=== PATIENT | male | born 1960 | race Caucasian/White ===

== ENCOUNTER 2018-08-05 11:20 | Emergency (ER) | payer OTHER, BC ==
[2018-08-05] MEDS ORDERED: Orphenadrine 100 MG Tab.ER PO ONE (12:10)
[2018-08-05] MEDS ORDERED: Ketorolac 30 MG/ML SDV IM ONE (12:10)
--- NOTE | 2018-08-05 12:16 | EDM.PDOC ---
ED HPI GENERAL MEDICAL PROBLEM - General Chief Complaint: Upper Extremity Injury/Pain Stated Complaint: RIGHT SHOULDER INJURY Time Seen by Provider: 08/05/18 11:29 Source of Information: Reports: Patient, RN Notes Reviewed History Limitations: Reports: No Limitations - History of Present Illness INITIAL COMMENTS - FREE TEXT/NARRATIVE: Patient is a 58 year old male who presents to the ED for the evaluation of right shoulder pain. 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 He notes the pain to be just below his right shoulder joint. He states that any movement of the shoulder aggravates this and it feels better just at rest or with no movement. He did not take anything for pain relief before coming to the ED. He would rate his pain at an 8-9/10 when it is present. He notes that he did have rotator cuff surgery to this shoulder around 15 years ago. He denies any numbness/tingling or weakness to his right arm. Right Shoulder Pain Score (Numeric/FACES): 3 - Related Data Allergies Allergy/AdvReac Type Severity Reaction Status Date / Time bee venom protein (honey bee) Allergy Cannot Verified 08/05/18 11:31 Remember Home Meds: Home Meds Carvedilol [Coreg] 3.125 mg PO BID 08/05/18 [History] Digoxin 125 mcg PO DAILY 08/05/18 [History] Furosemide [Lasix] 20 mg PO DAILY 08/05/18 [History] Orphenadrine [Norflex] 100 mg PO BID PRN #30 tab 08/05/18 [Rx] Ramipril 1.25 mg PO DAILY 08/05/18 [History] Past Medical History HEENT History: Reports: Impaired Vision Cardiovascular History: Reports: High Cholesterol, Hypertension Neurological History: Reports: Brain Injury - Past Surgical History Musculoskeletal Surgical History: Reports: Shoulder Surgery Social & Family History - Tobacco Use Smoking Status *Q: Former Smoker Used Tobacco, but Quit: Yes Month/Year Tobacco Last Used: 10 years - Caffeine Use Caffeine Use: Reports: Soda - Recreational Drug Use Recreational Drug Use: No Review of Systems - Review of Systems Review Of Systems: See Below Constitutional: Reports: No Symptoms Eyes: Reports: No Symptoms Ears: Reports: No Symptoms Nose: Reports: No Symptoms Mouth/Throat: Reports: No Symptoms Respiratory: Reports: No Symptoms Cardiovascular: Reports: No Symptoms GI/Abdominal: Reports: No Symptoms Genitourinary: Reports: No Symptoms Musculoskeletal: Reports: Shoulder Pain (right), Muscle Pain. Denies: Arm Pain , Joint Pain, Joint Swelling, Muscle Stiffness Skin: Reports: No Symptoms Neurological: Reports: Pre-Existing Deficit (rotator cuff surgery). Denies: Numbness, Tingling, Weakness Psychiatric: Reports: No Symptoms ED EXAM, GENERAL - Physical Exam Exam: See Below Free Text/Narrative:: exam limited to right upper extremity Exam Limited By: No Limitations General Appearance: Alert, WD/WN, No Apparent Distress Head: Atraumatic, Normocephalic Neck: Normal Inspection, Supple, Non-Tender, Full Range of Motion Respiratory/Chest: No Respiratory Distress, Lungs Clear, Normal Breath Sounds, No Accessory Muscle Use, Chest Non-Tender Cardiovascular: Normal Peripheral Pulses, Regular Rate, Rhythm, No Murmur Back Exam: Normal Inspection, Full Range of Motion Extremities: Normal Inspection, Non-Tender, Normal Capillary Refill, Limited Range of Motion (due to pain of right shoulder). No: Joint Swelling, Arm Pain, Increased Warmth, Redness Neurological: Alert, Oriented, Normal Cognition, Normal Reflexes, No Motor/ Sensory Deficits Psychiatric: Normal Affect, Normal Mood Skin Exam: Warm, Dry, Intact, Normal Color, No Rash Course - Vital Signs Last Recorded V/S: Last Vital Signs Temp 97.3 F 08/05/18 11:28 Pulse 106 H 08/05/18 11:28 Resp 18 08/05/18 11:28 BP 136/100 H 08/05/18 11:28 Pulse Ox 100 08/05/18 11:28 - Orders/Labs/Meds Meds: Medications Discontinued Medications Generic Name Dose Route Start Last Admin Trade Name Duyq PRN Reason Stop Dose Admin Ketorolac Tromethamine 30 mg 08/05/18 12:10 08/05/18 12:14 Toradol IM 08/05/18 12:11 30 mg ONETIME ONE Administration Orphenadrine Citrate 100 mg 08/05/18 12:10 08/05/18 12:14 Norflex PO 08/05/18 12:11 100 mg ONETIME ONE Administration - Radiology Interpretation Free Text/Narrative:: Previous right shoulder surgery, no additional abnormality is seen. Joints WNL. - Re-Assessments/Exams Free Text/Narrative Re-Assessment/Exam: 08/05/18 12:18 Pt presents to ED for right shoulder pain. Since this is a work injury, imaging will be done to r/o any fracture or establish a normal baseline for the injury. He will be given 30 mg IM toradol and 100 mg Norflex for pain relief. 08/05/18 12:51 Right shoulder x-ray does not appreciate any acute abnormality. This is likely due to muscle strain. Will provide script for norflex and recommend f/u with primary care provider. Departure - Departure Time of Disposition: 12:51 Disposition: Home, Self-Care 01 Condition: Fair Clinical Impression: Muscle strain of right shoulder Qualifiers: Encounter type: initial encounter Qualified Code(s): S46.911A - Strain of unspecified muscle, fascia and tendon at shoulder and upper arm level, right arm , initial encounter - Discharge Information *PRESCRIPTION DRUG MONITORING PROGRAM REVIEWED*: No *COPY OF PRESCRIPTION DRUG MONITORING REPORT IN PATIENT MIKAL: No Instructions: Muscle Strain, [id number] Referrals: Sharon Sweeney PA-C [Primary Care Provider] - Forms: ED Department Discharge Additional Instructions: You have been evaluated in the ED for your right shoulder pain. Your shoulder x-ray did not demonstrate any acute fracture or abnormality. This is likely caused by a strain of one of your shoulder muscles. Treatment is ibuprofen 600-800mg every 6 hours while awake (do not exceed 3200mg in one day), along with Norflex 100 mg (muscle relaxer) two times daily for muscle spasms. The norflex script has been sent to [facility] in [place]. Recommend that you follow up with primary care provider for chronic management of your shoulder pain. Please return to ED if your symptoms change or worsen.
--- NOTE | 2018-08-05 12:37 | CR ---
Right shoulder: Three views of the right shoulder were obtained. Comparison: No previous study. Glenohumeral and acromioclavicular joint appear within normal limits. Two surgical anchors are noted within the humeral head. No fracture, dislocation or other bony abnormality is seen. Impression: 1. Previous right shoulder surgery. No additional abnormality is seen. Diagnostic code #2
== END 2018-08-05 13:00 | disposition home or self-care (01) ==
LOC: JD.ED 11:20
DX: S46.911A Strain of unspecified muscle, fascia and tendon at shoulder and upper arm level, right arm, initial encounter (principal); E78.00 Pure hypercholesterolemia, unspecified; I10 Essential (primary) hypertension; Z87.891 Personal history of nicotine dependence; Z98.890 Other specified postprocedural states; X50.9XXA Other and unspecified overexertion or strenuous movements or postures, initial encounter; Y99.0 Civilian activity done for income or pay
CPT/HCPCS: 73030; 96372; 99283; A9270; J1885